=== PATIENT | female | born 1985 | race Caucasian/White ===

== ENCOUNTER 2019-11-29 10:36 | Day surgery (SDC) | payer MEDICAID ==
[~2019-11-29] VITALS: Ht 165.1 cm; Wt 62.9 kg
[2019-11-29] VITALS (9 sets, daily range): BP systolic 106–153; BP diastolic 83–99
[~2019-11-29 10:36] MED LIST: MAG400T PO; POTA8TAB46 PO; ZOF4T PO
[2019-11-29] MEDS ORDERED: normal saline 1000ml 1,000 ML IV ONE (10:55)
[2019-11-29] MEDS ORDERED: CARV3.122 PO (11:12)
[2019-11-29] MEDS ORDERED: LEVO150T8 PO (11:12)
[2019-11-29] MEDS ORDERED: LISI10TA4 PO (11:12)
[2019-11-29] MEDS ORDERED: CLONIDINE PO (11:12)
[2019-11-29] MEDS ORDERED: MAGN250T29 PO (11:12)
[2019-11-29 11:48] LABS: BASOPHILS # (AUTO) 0.1 X10'3 (0-0.2); BASOPHILS % (AUTO) 1.2 % (0-1); EOSINOPHILS # (AUTO) 0.2 X10'3 (0-0.9); EOSINOPHILS % (AUTO) 1.9 % (0-6); HEMATOCRIT 40.4 % (35.0-45.0); HEMOGLOBIN 13.5 g/dl (12.0-16.0); LYMPHOCYTES # (AUTO) 3.1 X10'3 (1.1-4.8); LYMPHOCYTES % (AUTO) 26.2 % (21-51); MEAN CORPUSCULAR HEMOGLOBIN 33.1 PG (27.0-31.0); MEAN CORPUSCULAR HGB CONC 33.5 g/dL (33.0-36.5); MEAN CORPUSCULAR VOLUME 98.8 FL (78-98); MEAN PLATELET VOLUME 7.8 FL (7.4-10.4); MONOCYTES # (AUTO) 0.8 X10'3 (0-0.9); MONOCYTES % (AUTO) 7.2 % (2-12); NEUTROPHILS # (AUTO) 7.5 X10'3 (1.8-7.7); NEUTROPHILS % (AUTO) 63.5 % (42-75); PLATELET COUNT 372 X10'3 (140-440); RED BLOOD COUNT 4.08 X10'6 (4.20-5.60); RED CELL DISTRIBUTION WIDTH 13.2 % (11.5-14.5); WHITE BLOOD COUNT 11.8 X10'3 (4.5-11.0)
[2019-11-29 11:55] LABS: ALBUMIN 3.4 G/DL (3.4-5.0); ANION GAP 8 (8-16); BLOOD UREA NITROGEN 20 MG/DL (7-18); BUN/CREATININE RATIO 21.7 (6.6-38.0); CALCIUM 8.8 MG/DL (8.5-10.1); CHLORIDE 106 MMOL/L (99-107); CREATININE 0.92 MG/DL (0.40-0.90); GLUCOSE 101 MG/DL (70-104); MAGNESIUM 1.9 MG/DL (1.5-2.4); POTASSIUM 3.5 MMOL/L (3.5-5.1); SODIUM 137 MMOL/L (135-145); TOTAL CARBON DIOXIDE 22.8 MMOL/L (24-32); eGFR 69 ML/MIN
[2019-11-29] MEDS ORDERED: midazolam 2 mg/2 ml injection ONE ×5 (12:58→14:16)
[2019-11-29] MEDS ORDERED: ceFAZolin 1000mg inj ONE (12:58)
[2019-11-29] MEDS ORDERED: LIDOcaine 1% W/epiNEPHrine 1:100,000 20ml vial ONE (12:58)
[2019-11-29] MEDS ORDERED: fentaNYL/PF 50MCG/1 ML 2ML syringe ONE ×3 (12:58→14:10)
[2019-11-29] MEDS ORDERED: HYDROcodone/acetaminophen 5mg/325mg tablet PO PRN (15:20)
[2019-11-29] MEDS ORDERED: HYDROcodone/acetaminophen 10/325mg tab PO PRN (15:20)
[2019-11-29] MEDS ORDERED: normal saline 1000ml 400 ML IV ONE (15:20)
== END 2019-11-29 17:00 | disposition home or self-care (01) ==
LOC: SSTAY O 10:36 → MED 3N 10:42 → SSTAY O 17:00
PROVIDERS: ATTEND Internal Medicine Cardiovascular Disease
DX: T82.191A Other mechanical complication of cardiac pulse generator (battery), initial encounter (principal); T82.190A Other mechanical complication of cardiac electrode, initial encounter; I49.01 Ventricular fibrillation; I42.0 Dilated cardiomyopathy; Z79.899 Other long term (current) drug therapy; E43 Unspecified severe protein-calorie malnutrition; F31.9 Bipolar disorder, unspecified; D64.9 Anemia, unspecified; E03.9 Hypothyroidism, unspecified; K21.9 Gastro-esophageal reflux disease without esophagitis; G40.909 Epilepsy, unspecified, not intractable, without status epilepticus; Z87.01 Personal history of pneumonia (recurrent); Z86.14 Personal history of Methicillin resistant Staphylococcus aureus infection; F12.90 Cannabis use, unspecified, uncomplicated; Z72.89 Other problems related to lifestyle; Z88.8 Allergy status to other drugs, medicaments and biological substances; Y83.8 Other surgical procedures as the cause of abnormal reaction of the patient, or of later complication, without mention of misadventure at the time of the procedure; Y92.89 Other specified places as the place of occurrence of the external cause
CPT/HCPCS: 33241; 33244; 33249; 36415; 71045; 80048; 83735; 85025; 85610; 93005; 93971; 99152; 99153; C1722; C1777; C1894; J0690; J2250; J3010; 33216; 33262; A4565; A4620

== ENCOUNTER 2022-07-22 04:39 | Emergency (ER) | payer MEDICAID ==
[~2022-07-22] VITALS: Ht 167.6 cm; Wt 67.3 kg
[~2022-07-22 04:39] MED LIST changes: +CARV3.122 PO; +CLONIDINE PO; +LEVO150T8 PO; +LISI10TA27 PO; -MAG400T PO; +MAGN250T29 PO; -POTA8TAB46 PO; -ZOF4T PO
[2022-07-22 05:45] LABS: BASOPHILS # (AUTO) 0.2 X10'3 (0-0.2); EOSINOPHILS # (AUTO) 0.2 X10'3 (0-0.9); HEMATOCRIT 40.2 % (35.0-45.0); HEMOGLOBIN 13.6 g/dl (12.0-16.0); LYMPHOCYTES # (AUTO) 2.8 X10'3 (1.1-4.8); LYMPHOCYTES % (AUTO) 17.4 % (21-51); MEAN CORPUSCULAR HEMOGLOBIN 36.2 PG (27.0-31.0); MEAN CORPUSCULAR HGB CONC 33.9 g/dL (33.0-36.5); MEAN CORPUSCULAR VOLUME 106.8 FL (78-98); MEAN PLATELET VOLUME 8.2 FL (7.4-10.4); MONOCYTES # (AUTO) 0.9 X10'3 (0-0.9); MONOCYTES % (AUTO) 5.8 % (2-12); NEUTROPHILS # (AUTO) 12.1 X10'3 (1.8-7.7); NEUTROPHILS % (AUTO) 74.8 % (42-75); PLATELET COUNT 361 X10'3 (140-440); RED BLOOD COUNT 3.77 X10'6 (4.20-5.60); RED CELL DISTRIBUTION WIDTH 15.1 % (11.5-14.5); WHITE BLOOD COUNT 16.2 X10'3 (4.5-11.0)
[2022-07-22 05:55] LABS: URINE HCG NEGATIVE (NEG)
[2022-07-22 06:02] LABS: URINE AMPHETAMINE SCREEN POSITIVE (Neg); URINE BARBITUATE SCREEN NEGATIVE (Neg); URINE BENZODIAZEPINES SCREEN POSITIVE (Neg); URINE CANNABINOID SCREEN POSITIVE (Neg); URINE COCAINE SCREEN NEGATIVE (Neg); URINE METHADONE SCREEN NEGATIVE (Neg); URINE OPIATE SCREEN NEGATIVE (Neg); URINE PHENCYCLIDINE SCREEN NEGATIVE (Neg)
[2022-07-22 06:03] LABS: ALANINE AMINOTRANSFERASE 21 U/L (12-78); ALBUMIN/GLOBULIN RATIO 0.8 (1.1-1.5); ALKALINE PHOSPHATASE 100 IU/L (46-116); ANION GAP 13 (8-16); BILIRUBIN,TOTAL 0.8 MG/DL (0.1-1.0); BLOOD UREA NITROGEN 10 MG/DL (7-18); BUN/CREATININE RATIO 10.1 (6.6-38.0); CALCIUM 10.1 MG/DL (8.5-10.1); CHLORIDE 101 MMOL/L (99-107); CREATININE 0.99 MG/DL (0.40-0.90); ETHANOL < 0.010 GM/DL (0.0-0.010); GLUCOSE 127 MG/DL (70-104); SODIUM 138 MMOL/L (135-145); TOTAL PROTEIN 8.8 G/DL (6.4-8.2); eGFR 63 ML/MIN
[2022-07-22 06:04] LABS: ASPARTATE AMINO TRANSFERASE 40 U/L (10-37); POTASSIUM 3.9 MMOL/L (3.5-5.1)
[2022-07-22] MEDS ORDERED: folic acid 1mg tablet PO ONE (08:15)
[2022-07-22] MEDS ORDERED: ringers solution, lacted 1,000 ML IV ONE (08:15)
[2022-07-22] MEDS ORDERED: thiamine 100mg/ml 2ml inj. IV ONE (08:15)
[2022-07-22 08:29] LABS: CLARITY,URINE CLOUDY (Clear); GLUCOSE, URINE NEGATIVE (Neg); KETONES,URINE TRACE mg/dl (Neg); LEUKOCYTE ESTERASE ,URINE NEGATIVE (Neg); NITRITES, URINE NEGATIVE (Neg); OCCULT BLOOD,URINE NEGATIVE (Neg); PH,URINE 5.5 (4.8-8.0); PROTEIN,URINE 30 mg/dl (Neg); UROBILINOGEN,URINE 0.2 E.U/dL (0.2-1.0)
[2022-07-22 08:30] LABS: COLOR,URINE DARK YELLOW (Yellow); UA COLLECTION TYPE CLN CATCH MIDSTREAM
[2022-07-22 08:39] LABS: WBC,URINE 0-4 /HPF (0-4)
[2022-07-22 08:40] LABS: BACTERIA,URINE 1+ /HPF (Neg); CAL OXALATE CRYSTALS 4+ /HPF (NEGATIVE); RBC,URINE NONE SEEN /HPF (0-2); SQUAMOUS EPITHELIAL CELL,UR MANY /LPF (FEW)
--- NOTE | 2022-07-22 12:43 | NUR ---
Met with patient in regards to substance use and to see if patient wanted resources for treatment options. Patient is interested in both in and out patient rehabs. I gave patient [facility] number to call and get process started and my card to call me with any questions.
[2022-07-22 14:45] VITALS: BP 124/84
== END 2022-07-22 14:49 | disposition home or self-care (01) ==
LOC: ER 04:40
DX: Z00.8 Encounter for other general examination (principal); Z20.822 Contact with and (suspected) exposure to COVID-19; F31.9 Bipolar disorder, unspecified; I10 Essential (primary) hypertension; K21.9 Gastro-esophageal reflux disease without esophagitis; G89.29 Other chronic pain; F41.9 Anxiety disorder, unspecified; Z72.89 Other problems related to lifestyle; Z88.2 Allergy status to sulfonamides; Z79.899 Other long term (current) drug therapy
CPT/HCPCS: 36415; 80053; 80305; 80320; 81001; 81025; 85025; 87811; 96361; 96374; 99285; J3411; J7120; 99283

== ENCOUNTER 2023-12-06 02:30 | Emergency (ER) | payer MEDICAID, SELFPAY ==
[~2023-12-06] VITALS: Ht 165.1 cm; Wt 61.4 kg
[2023-12-06 02:43] VITALS: TEMP 98.4
[2023-12-06 04:23] VITALS: BP 100/66; PULSE 81; RESP 18; O2SAT 99
== END 2023-12-06 04:40 | disposition home or self-care (01) ==
LOC: ER 02:30
DX: T46.4X1A Poisoning by angiotensin-converting-enzyme inhibitors, accidental (unintentional), initial encounter (principal); I10 Essential (primary) hypertension; K21.9 Gastro-esophageal reflux disease without esophagitis; F41.9 Anxiety disorder, unspecified; Z88.2 Allergy status to sulfonamides; Z91.030 Bee allergy status; Z79.899 Other long term (current) drug therapy; Z79.2 Long term (current) use of antibiotics; Y92.89 Other specified places as the place of occurrence of the external cause
CPT/HCPCS: 99283

== ENCOUNTER 2024-05-09 07:05 | Emergency (ER) | payer MEDICAID ==
[~2024-05-09] VITALS: Ht 165.1 cm; Wt 76.4 kg
[2024-05-09 07:08] VITALS: TEMP 97.8
[2024-05-09] MEDS: diphenhydrAMINE 50 mg/ml inj IV ONE (07:55)
[2024-05-09] MEDS: ketorolac trometh 15mg/ml vial 15 MG/ML ML IV ONE (07:55)
[2024-05-09] MEDS: normal saline 1000ML IV soln IVB ONE (07:55)
[2024-05-09] MEDS: metoclopramide 5 mg/ml inj IV ONE (07:55)
[2024-05-09] MEDS: ketorolac trometh 15mg/ml vial 15 MG/ML ML IM ONE (09:27)
[2024-05-09] MEDS: traMADol 50MG tablet PO ONE (09:27)
[2024-05-09] MEDS: acetaminophen 1,000mg/100ml IV 100 ML IV STA (09:42)
[2024-05-09 10:45] VITALS: BP 123/74; PULSE 77; RESP 14; O2SAT 95
== END 2024-05-09 10:48 | disposition home or self-care (01) ==
LOC: ER 07:05
DX: R07.89 Other chest pain (principal); I10 Essential (primary) hypertension; K21.9 Gastro-esophageal reflux disease without esophagitis; F41.9 Anxiety disorder, unspecified; F12.90 Cannabis use, unspecified, uncomplicated; F15.90 Other stimulant use, unspecified, uncomplicated; Z88.2 Allergy status to sulfonamides; Z79.899 Other long term (current) drug therapy
CPT/HCPCS: 71045; 93005; 96372; 99283; J1885; J7030

== ENCOUNTER 2024-09-20 19:41 | Emergency (ER) | payer MEDICAID ==
[~2024-09-20] VITALS: Ht 167.6 cm; Wt 75.4 kg
[2024-09-20 19:45] VITALS: BP 114/74; PULSE 71; RESP 16; TEMP 98.3; O2SAT 100
[2024-09-20 20:57] LABS: BASOPHILS # (AUTO) 0.1 X10'3 (0-0.2); BASOPHILS % (AUTO) 0.7 % (0-1); EOSINOPHILS # (AUTO) 0.1 X10'3 (0-0.9); EOSINOPHILS % (AUTO) 0.5 % (0-6); HEMATOCRIT 38.6 % (35.0-45.0); HEMOGLOBIN 12.9 g/dl (12.0-16.0); LYMPHOCYTES # (AUTO) 2.6 X10'3 (1.1-4.8); LYMPHOCYTES % (AUTO) 20.9 % (21-51); MEAN CORPUSCULAR HEMOGLOBIN 30.3 PG (27.0-31.0); MEAN CORPUSCULAR HGB CONC 33.5 g/dL (33.0-36.5); MEAN CORPUSCULAR VOLUME 90.5 FL (78-98); MEAN PLATELET VOLUME 7.4 FL (7.4-10.4); MONOCYTES # (AUTO) 0.5 X10'3 (0-0.9); MONOCYTES % (AUTO) 3.6 % (2-12); NEUTROPHILS # (AUTO) 9.4 X10'3 (1.8-7.7); NEUTROPHILS % (AUTO) 74.3 % (42-75); PLATELET COUNT 449 X10'3 (140-440); RED BLOOD COUNT 4.27 X10'6 (4.20-5.60); RED CELL DISTRIBUTION WIDTH 13.4 % (11.5-14.5); WHITE BLOOD COUNT 12.6 X10'3 (4.5-11.0)
[2024-09-20 21:09] LABS: ALANINE AMINOTRANSFERASE 16 U/L (12-78); ALBUMIN 3.5 G/DL (3.4-5.0); ALBUMIN/GLOBULIN RATIO 0.8 (1.1-1.5); ALKALINE PHOSPHATASE 99 IU/L (46-116); ANION GAP 10 (8-16); ASPARTATE AMINO TRANSFERASE 12 U/L (10-37); BILIRUBIN,TOTAL 0.5 MG/DL (0.1-1.0); BLOOD UREA NITROGEN 7 MG/DL (7-18); BUN/CREATININE RATIO 10.6 (10.0-20.0); CALCIUM 8.9 MG/DL (8.5-10.1); CHLORIDE 103 MMOL/L (99-107); CREATININE 0.66 MG/DL (0.40-0.90); GLUCOSE 117 MG/DL (70-104); POTASSIUM 3.3 MMOL/L (3.5-5.1); SODIUM 137 MMOL/L (135-145); TOTAL CARBON DIOXIDE 23.8 MMOL/L (24-32); TOTAL PROTEIN 8.1 G/DL (6.4-8.2); eCRCL 106 ML/MIN; eGFR > 90 ML/MIN
== END 2024-09-21 00:29 | disposition left against medical advice (07) ==
LOC: ER 19:42
DX: R10.9 Unspecified abdominal pain (principal); Z88.2 Allergy status to sulfonamides; Z91.030 Bee allergy status; Z53.21 Procedure and treatment not carried out due to patient leaving prior to being seen by health care provider
CPT/HCPCS: 36415; 80053; 85025; 93005

== ENCOUNTER 2024-11-30 00:16 | Emergency (ER) | payer MEDICAID ==
[~2024-11-30] VITALS: Ht 172.7 cm; Wt 68.0 kg
[2024-11-30 00:58] LABS: BASOPHILS # (AUTO) 0.1 X10'3 (0-0.2); BASOPHILS % (AUTO) 0.7 % (0-1); EOSINOPHILS # (AUTO) 0.4 X10'3 (0-0.9); HEMATOCRIT 36.5 % (35.0-45.0); HEMOGLOBIN 12.6 g/dl (12.0-16.0); LYMPHOCYTES # (AUTO) 4.5 X10'3 (1.1-4.8); LYMPHOCYTES % (AUTO) 41.7 % (21-51); MEAN CORPUSCULAR HGB CONC 34.5 g/dL (33.0-36.5); MEAN CORPUSCULAR VOLUME 89.8 FL (78-98); MEAN PLATELET VOLUME 7.2 FL (7.4-10.4); MONOCYTES # (AUTO) 0.4 X10'3 (0-0.9); MONOCYTES % (AUTO) 3.8 % (2-12); NEUTROPHILS # (AUTO) 5.3 X10'3 (1.8-7.7); NEUTROPHILS % (AUTO) 49.8 % (42-75); PLATELET COUNT 329 X10'3 (140-440); RED BLOOD COUNT 4.07 X10'6 (4.20-5.60); RED CELL DISTRIBUTION WIDTH 12.7 % (11.5-14.5); WHITE BLOOD COUNT 10.7 X10'3 (4.5-11.0)
[2024-11-30 00:59] LABS: ALBUMIN 3.3 G/DL (3.4-5.0); ANION GAP 10 (8-16); BLOOD UREA NITROGEN 9 MG/DL (7-18); BUN/CREATININE RATIO 11.7 (10.0-20.0); CALCIUM 8.8 MG/DL (8.5-10.1); CHLORIDE 105 MMOL/L (99-107); CREATININE 0.77 MG/DL (0.40-0.90); GLUCOSE 95 MG/DL (70-104); SODIUM 139 MMOL/L (135-145); TOTAL CARBON DIOXIDE 23.7 MMOL/L (24-32); eCRCL 98 ML/MIN; eGFR 83 ML/MIN
[2024-11-30] MEDS: normal saline 1000ml 1,000 ML IV ONE (01:04)
[2024-11-30 01:07] LABS: POTASSIUM 3.7 MMOL/L (3.5-5.1)
[2024-11-30 01:33] LABS: BILIRUBIN,URINE NEGATIVE (Neg); CLARITY,URINE CLEAR (Clear); COLOR,URINE YELLOW (Yellow); GLUCOSE, URINE NEGATIVE (Neg); KETONES,URINE NEGATIVE (Neg); LEUKOCYTE ESTERASE ,URINE NEGATIVE (Neg); NITRITES, URINE NEGATIVE (Neg); OCCULT BLOOD,URINE NEGATIVE (Neg); PROTEIN,URINE NEGATIVE (Neg); UROBILINOGEN,URINE 0.2 E.U/dL (0.2-1.0)
[2024-11-30 01:34] LABS: UA COLLECTION TYPE CLN CATCH MIDSTREAM
[2024-11-30 01:38] LABS: URINE AMPHETAMINE SCREEN POSITIVE (Neg); URINE BARBITUATE SCREEN NEGATIVE (Neg); URINE BENZODIAZEPINES SCREEN NEGATIVE (Neg); URINE CANNABINOID SCREEN POSITIVE (Neg); URINE COCAINE SCREEN NEGATIVE (Neg); URINE METHADONE SCREEN NEGATIVE (Neg); URINE OPIATE SCREEN NEGATIVE (Neg); URINE PHENCYCLIDINE SCREEN NEGATIVE (Neg)
[2024-11-30 03:02] VITALS: BP 101/73; PULSE 66; RESP 16; TEMP 98.4; O2SAT 100
== END 2024-11-30 03:27 | disposition home or self-care (01) ==
LOC: ER 00:17
DX: F10.129 Alcohol abuse with intoxication, unspecified (principal); I10 Essential (primary) hypertension; F41.9 Anxiety disorder, unspecified; F15.90 Other stimulant use, unspecified, uncomplicated; F11.90 Opioid use, unspecified, uncomplicated; F12.90 Cannabis use, unspecified, uncomplicated; Z88.2 Allergy status to sulfonamides; Y90.9 Presence of alcohol in blood, level not specified
CPT/HCPCS: 36415; 80048; 80305; 81003; 85025; 96360; 99283; J7030

== ENCOUNTER 2024-12-21 08:02 | Emergency (ER) | payer MEDICAID ==
[~2024-12-21] VITALS: Ht 167.6 cm; Wt 70.0 kg
[2024-12-21 08:06] VITALS: TEMP 97.8
--- NOTE | 2024-12-21 08:13 | ELECTROCARDIOGRAPH REPORT ---
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 Artur Odom Measurements Intervals [place] Rate: 78 P: 47 VT: 146 QRS: 12 QRSD: 96 T: 43 QT: 403 QTc: 460 Interpretive Statements Sinus rhythm Low voltage, precordial leads Baseline wander in lead(s) I,aVR,aVL,V2 Electronically Signed On 12-22-2024 15:45:[address] Artur Odom Please click the below link to view image of tracing.
--- NOTE | 2024-12-21 08:15 | Physician Documentation ---
History of Present Illness ~ Stated Complaint: CP Time Seen by MD: 08:07 Primary Medical Doctor: Michelle ALLEN This is a 39-year-old female who presents for evaluation of left-sided chest wall pain after she took a tumble while high clean. Worse with deep inspiration and palpation. No particular palliating factors. Did not attempt to treat it. This has not happened in the past. Denies abuse. Denies cardiac disease. She uses methamphetamines. Tetanus within 5 Years?: No Allergies: Coded Allergies: Sulfa (Sulfonamide Antibiotics) (Verified Adverse Reaction, Mild, itchy around throat and ears, 09/20/24) Uncoded Allergies: BEES (Allergy, Intermediate, 09/24/09) MOSQUITOS (Allergy, Intermediate, 09/24/09) Active Prescriptions See Medication Reconciliation Form. Medication Reconciliation Scheduled Carvedilol (Carvedilol), 1 TAB PO BID, (Reported) Levothyroxine Sodium (Levothyroxine Sodium), 1 TAB PO DAILY, (Reported) Lisinopril (Lisinopril), 10 MG PO BID, (Reported) Magnesium Oxide (Magnesium), 1 TAB PO BID, (Reported) [Clonidine], 2 TAB PO PRN, (Reported) Past Medical History Past Medical History: Arrhythmia, Hypertension, GERD, Thyroid (unspecified), Chronic Back Pain, Anxiety Past Surgical History: no surgical history Alcohol Use: Alcoholic Drug Use: marijuana, methamphetamine, heroin Lives with: Family Lives In: Home Occupation: disabled Review of Systems ROS 10 point review of systems was performed and unless noted above in HPI is negative for acute process/complaint. Physical Exam Physical Exam GENERAL: Awake, alert, oriented, GCS 15, no apparent distress, non-toxic appearing, answers questions, follows commands appropriately. HEENT: Atraumatic, normocephalic, pupils equal, extraocular muscles intact, sclerae anicteric, mucus membranes moist, oropharynx is clear, no stridor. NECK: supple, full active range of motion, trachea midline, no thyromegaly, no lymphadenopathy, no JVD. CARDIOVASCULAR: regular rate/rhythm, no murmurs/gallops/rubs, Pulses are 2+ in all extremities and symmetric. Capillary refill less than 2 seconds. PULMONARY: Nonlabored, good air movement ,no respiratory distress, speaking in full sentences, clear to auscultation bilaterally, no wheezing, no ronchi, no rales, no accessory muscle use. GASTROINTESTINAL: Soft, non-tender, non-distended, normal active bowel sounds, no organomegaly, no pulsatile masses, no CVA tenderness. NEUROLOGIC: Lucid with normal mental status. Normal facial symmetry. Moves all extremities symmetrically and with purpose. No truncal ataxia. Speech is fluid without evidence of dysarthria or aphasia, no focal deficits appreciated. MUSCULOSKELETAL: There is full range of motion of all extremities. There is no joint pain or joint swelling or joint erythema. There is no muscle pain or tenderness or swelling. EXTREMITIES: warm, well-perfused, no cyanosis, no clubbing, no edema, no acute deformities. Skin: warm, dry, no rashes or lesions, no jaundice, no petechiae orpurpura. No ecchymosis. PSYCHIATRIC: Normal affect, normal insight, normal concentration. Focused exam: Tenderness to palpation of the left-sided chest wall reproducing chief complaint, no obvious bruising, no flail segments, no crepitus Progress Results/Orders Results/Orders Orders - ZULMA WINSTON DO Ct Chest (12/21/24 09:55) Hs Troponin I W Calculations (12/21/24 10:08) Hs Troponin I W Calculations (12/21/24 11:08) Completed Orders - ZULMA WINSTON DO Electrocardiogram (12/21/24 08:08) Cbc/Diff (12/21/24 08:08) PBNP (12/21/24 08:08) MG (12/21/24 08:08) Ct Chest (12/21/24 09:55) CMP (12/21/24 08:08) Hs Troponin I W Calculations (12/21/24 08:08) Hcg Serum Ql (12/21/24 08:08) Urinalysis (12/21/24 08:14) Drug Screen, Urine (12/21/24 08:14) Hcg, Ur Ql (12/21/24 08:14) Vital Signs 12/21/24 12/21/24 12/21/24 12/21/24 08:06 08:24 09:52 09:52 Temp 97.8 Pulse 81 79 74 Resp 15 15 15 14 B/P (MAP) 131/92 135/91 (106) 132/96 (108) Pulse Ox 98 98 100 Laboratory Tests Test 12/21/24 08:17 12/21/24 08:58 Urine Specimen Description Urinal Urine Color Yellow Urine Clarity Clear Urine pH 6.0 Urine Specific [place] 1.020 Urine Protein Negative Urine Glucose (UA) Negative Urine Ketones Negative Urine Occult Blood Negative Urine Nitrite Negative Urine Bilirubin Negative Urine Urobilinogen 0.2 Urine Leukocyte Esterase Negative Volume Urine Centrifuged 10 ml Urine HCG, Qualitative Negative Urine Comment Urine Opiates Screen Negative Urine Methadone Screen Negative Urine Fentanyl Screen Negative Urine Barbiturates Screen Negative Urine Phencyclidine Screen Negative Urine Amphetamines Screen Positive Urine Benzodiazepines Screen Negative Urine Cocaine Screen Negative Urine Cannabinoids Screen Positive Drug Screen Comment White Blood Count 6.0 Red Blood Count 4.02 L Hemoglobin 12.5 Hematocrit 36.9 Mean Corpuscular Volume 91.8 Mean Corpuscular Hemoglobin 31.2 H Mean Corpuscular Hemoglobin Concent 34.0 Red Cell Distribution Width 13.7 Platelet Count 360 Mean Platelet Volume 6.8 L Neutrophils (%) (Auto) 36.9 L Lymphocytes (%) (Auto) 51.0 Monocytes (%) (Auto) 6.2 Eosinophils (%) (Auto) 4.5 Basophils (%) (Auto) 1.4 H Neutrophils # (Auto) 2.2 Lymphocytes # (Auto) 3.0 Monocytes # (Auto) 0.4 Eosinophils # (Auto) 0.3 Basophils # (Auto) 0.1 CBC Comment Sodium Level 138 Potassium Level 3.6 Chloride Level 103 Carbon Dioxide Level 26.6 Anion Gap 8 Blood Urea Nitrogen 12 Creatinine 0.90 Estimated GFR/1.73 m2 69 BUN/Creatinine Ratio 13.3 Glucose Level 106 H Calcium Level 8.3 L Magnesium Level 1.9 Total Bilirubin 0.5 Aspartate Amino Transf (AST/SGOT) 19 Alanine Aminotransferase (ALT/SGPT) 15 Alkaline Phosphatase 103 Troponin I High Sensitivity 5 Pro-B-Type Natriuretic Peptide 37 Total Protein 7.3 Albumin 3.4 Globulin 3.9 Albumin/Globulin Ratio 0.9 L Human Chorionic Gonadotropin, Qual Negative Chemistry Comments EKG/XRAY/CT/US/VASC/MRI EKG : Additional Comment EKG was obtained per protocol and interpreted by myself showing sinus rhythm of 78, normal MS interval, narrow QRS, no QT prolongation, normal axis, no STEMI. Low voltage noted. Medical Decision Making Findings Facility Status: ED Holds, RME process The plan was discussed with the patient, who demonstrates clear understanding of the plan and is in agreement with the plan unless otherwise noted in the chart. All questions have been answered, all concerns were addressed unless otherwise documented. I was available throughout their ED stay for frequent reassessment and questions. Differential Diagnoses (considered and possible or likely): [Differential diagnosis considered includes chest wall pain, pleurisy, pneumonia, pulmonary embolus, GERD, esophagitis, gastritis, anxiety, stress reaction, costochondritis , acute coronary syndrome, aortic dissection, pericarditis, myocarditis, or pneumothorax.] ??Differential Diagnoses (considered and unlikely, not requiring evaluation currently): [Aortic/great vessels dissection was considered but it is unlikely based on absence of ripping, tearing, migratory chest pain, absence of syncope or focal neurologic deficits, physical examination indicating equal and symmetric pulses.] MDM Data Please see [facility] for the following: Independent Historians and external Records Review. Historian: [Patient] Independent Historians: ?[EMS, record review] Medication Management: [Reviewed medication list] Social History and determinants: [Reviewed] Please see the body of the note for the following: Any independent interpretations of ECG, imaging studies. All vitals signs/haemodynamics, ordered tests were independently reviewed and interpreted by myself. Nursing triage complaint and vitals reviewed, additional nursing notes were reviewed as available and I agree unless otherwise noted or documented in con tradiction in the chart Vital Signs: Independently reviewed Labs: Independently interpreted Imaging: Independently interpreted Old Medical Records: Independently reviewed, see HPI for relevant summary and information Pulse Oximetry: [99%] interpreted as [normal on room air] by me [Shuttle Inspector: [Regular Rate, Regular rhythm, no ectopy, NSR] reviewed and interpreted by me] Additionally notably showing: [Hemodynamically stable. Unremarkable workup with negative troponin, negative CT, negative blood work. Incidentally UA is positive for methamphetamines as expected.] Tests considered but not ordered include: [Not applicable] Social Determinants of Health Impact: Patient was evaluated in [facility], or [facility] [place] with limited access to healthcare due to below par ratio of patient to medical providers. [] Comorbid Conditions Impacting Present Evaluation and Care/Treatment: [Methamphetamine abuse] Management Discussions with other Healthcare Providers: [None] Treatment and Disposition Medication Management (Given or considered): [Pain management]. See EMR for details Consideration for Hospitalization/Escalation/Deescalation of Care: Admission for observation has been considered, [however the patient is able to tolerate p.o., their symptoms are controlled, they are able to rely on oral medications, and their chief complaint/diagnosis can be managed on outpatient basis.] ?ED Course:?[No clinical deterioration] ?Shared decision making:?[Patient is hemodynamically stable for discharge home with follow with their primary care provider. [ ] Specific and cautious return precautions provided and discussed with full understanding. Any incidental findings were also discussed and follow up recommendations given. [] All questions answered. Patient/family were able to verbalize back return precautions. Patient/family agree to plan. Copies of imaging and laboratory studies were provided.] Code status:?FULL Please see the full Electronic Medical Record for full details of nursing docum entation, medications list, other records of complete past medical history and conditions, vital signs, laboratory studies, and any radiologic study interpretations by radiologists. Portions of this note were completed using [employer] dictation software and as a result there may exist minor errors in spelling. I have reviewed elements of past family and social history and agree as included in note. Departure Disposition: HOME / SELF CARE / HOMELESS Impression: Primary Impression: Tenderness of chest wall Condition: Improved Discharge Instructions: Chest Wall Pain Referrals: NO PRIMARY CARE PROVIDER (PCP) Education Educated: Patient Educated regarding: diagnosis, treatment, prognosis, need for follow up Signature Scribe Signature: No scribe Attestation: This note accurately reflects clinical decisions, work performed by myself, DO TISH Sterling NICHOLAS M DO December 21, 2024 08:15
[2024-12-21 08:48] LABS: BILIRUBIN,URINE NEGATIVE (Neg); CLARITY,URINE CLEAR (Clear); COLOR,URINE YELLOW (Yellow); GLUCOSE, URINE NEGATIVE (Neg); KETONES,URINE NEGATIVE (Neg); LEUKOCYTE ESTERASE ,URINE NEGATIVE (Neg); OCCULT BLOOD,URINE NEGATIVE (Neg); PROTEIN,URINE NEGATIVE (Neg); UROBILINOGEN,URINE 0.2 E.U/dL (0.2-1.0)
[2024-12-21 08:54] LABS: URINE HCG NEGATIVE (NEG)
[2024-12-21 08:58] LABS: URINE AMPHETAMINE SCREEN POSITIVE (Neg); URINE BARBITUATE SCREEN NEGATIVE (Neg); URINE BENZODIAZEPINES SCREEN NEGATIVE (Neg); URINE CANNABINOID SCREEN POSITIVE (Neg); URINE COCAINE SCREEN NEGATIVE (Neg); URINE METHADONE SCREEN NEGATIVE (Neg); URINE OPIATE SCREEN NEGATIVE (Neg); URINE PHENCYCLIDINE SCREEN NEGATIVE (Neg)
[2024-12-21 08:59] LABS: UA COLLECTION TYPE URINAL
[2024-12-21 09:01] LABS: NITRITES, URINE NEGATIVE (Neg)
[2024-12-21 09:10] LABS: BASOPHILS # (AUTO) 0.1 X10'3 (0-0.2); BASOPHILS % (AUTO) 1.4 % (0-1); EOSINOPHILS # (AUTO) 0.3 X10'3 (0-0.9); EOSINOPHILS % (AUTO) 4.5 % (0-6); HEMATOCRIT 36.9 % (35.0-45.0); HEMOGLOBIN 12.5 g/dl (12.0-16.0); MEAN CORPUSCULAR HEMOGLOBIN 31.2 PG (27.0-31.0); MEAN CORPUSCULAR VOLUME 91.8 FL (78-98); MEAN PLATELET VOLUME 6.8 FL (7.4-10.4); MONOCYTES # (AUTO) 0.4 X10'3 (0-0.9); MONOCYTES % (AUTO) 6.2 % (2-12); NEUTROPHILS # (AUTO) 2.2 X10'3 (1.8-7.7); NEUTROPHILS % (AUTO) 36.9 % (42-75); PLATELET COUNT 360 X10'3 (140-440); RED BLOOD COUNT 4.02 X10'6 (4.20-5.60); RED CELL DISTRIBUTION WIDTH 13.7 % (11.5-14.5)
[2024-12-21 09:25] LABS: ALANINE AMINOTRANSFERASE 15 U/L (12-78); ALBUMIN 3.4 G/DL (3.4-5.0); ALBUMIN/GLOBULIN RATIO 0.9 (1.1-1.5); ALKALINE PHOSPHATASE 103 IU/L (46-116); ANION GAP 8 (8-16); ASPARTATE AMINO TRANSFERASE 19 U/L (10-37); BILIRUBIN,TOTAL 0.5 MG/DL (0.1-1.0); BLOOD UREA NITROGEN 12 MG/DL (7-18); BUN/CREATININE RATIO 13.3 (10.0-20.0); CALCIUM 8.3 MG/DL (8.5-10.1); CHLORIDE 103 MMOL/L (99-107); GLUCOSE 106 MG/DL (70-104); POTASSIUM 3.6 MMOL/L (3.5-5.1); SODIUM 138 MMOL/L (135-145); TOTAL CARBON DIOXIDE 26.6 MMOL/L (24-32); TOTAL PROTEIN 7.3 G/DL (6.4-8.2); eCRCL 78 ML/MIN; eGFR 69 ML/MIN
[2024-12-21 09:33] LABS: MAGNESIUM 1.9 MG/DL (1.5-2.4); PRO BRAIN NATRIURETIC PEPTIDE 37 PG/ML (0-125)
[2024-12-21 09:44] LABS: HCG SERUM QL NEGATIVE
--- NOTE | 2024-12-21 10:25 | RADIOLOGY REPORT ---
Procedure: CT CT CHEST Reason for study/Clinical History: Fall, left-sided rib pain Comparison Study: NoneNone TECHNIQUE: Multidetector CT of the chest was performed from the lung apices to the upper abdomen with out the use of intravenous contract. Axial, coronal and sagittal multiplanar reformats were performed . Radiation Dose Information: CT Dose: CTDI volume is 14.9 mGy. Dose-length product is 471.9 mGy*cm The dose indicators for CT are the volume Computed Tomography (CT) Dose Index (CTDIvol) and the Dose Length Product (DLP), and are measured in units of mGy and mGy-cm, respectively. These indicators are not patient dose, but values generated from the CT scanner acquisition factors. The report includes radiation exposure data for exposures received during this examination. FINDINGS: Lower neck: Unremarkable. Lungs: No focal consolidation. No suspicious pulmonary nodule. Heart/Vascular Structures: Normal heart size. No pericardial effusion. Lymph Nodes: No adenopathy Pleura: No pleural effusion or significant pneumothorax. Musculoskeletal: No acute osseous abnormality. Chronic healed left posterolateral 9th rib fracture. C hronic healed sternal fracture. Soft tissues: Cardiac device overlies the left lateral chest wall. Upper abdomen: Limited portions of the upper abdomen are unremarkable. IMPRESSION: No acute intrathoracic abnormality. Radiation optimization: All CT scans at this facility use at least one of these dose optimization yuri hniques: automated exposure control mA and/or kV adjustment per patient size (includes targeted exam s where dose is matched to clinical indication) or iterative reconstruction.
[2024-12-21 11:02] VITALS: BP 118/93; PULSE 60; RESP 12; O2SAT 96
== END 2024-12-21 11:06 | disposition home or self-care (01) ==
LOC: ER 08:03
DX: R07.89 Other chest pain (principal); I10 Essential (primary) hypertension; F12.90 Cannabis use, unspecified, uncomplicated; F15.90 Other stimulant use, unspecified, uncomplicated; F11.90 Opioid use, unspecified, uncomplicated; F10.90 Alcohol use, unspecified, uncomplicated; G89.29 Other chronic pain; M54.9 Dorsalgia, unspecified; K21.9 Gastro-esophageal reflux disease without esophagitis; F41.9 Anxiety disorder, unspecified; I16.1 Hypertensive emergency; Z79.899 Other long term (current) drug therapy; Z88.2 Allergy status to sulfonamides; Y90.9 Presence of alcohol in blood, level not specified
CPT/HCPCS: 36415; 71250; 80053; 80305; 81003; 81025; 83735; 83880; 84484; 84703; 85025; 93005; 99284

== ENCOUNTER 2024-12-21 11:49 | Emergency (ER) | payer MEDICAID | END 2024-12-21 12:45 | disposition left against medical advice (07) | LOC: ER 11:50 | DX: Z48.00 Encounter for change or removal of nonsurgical wound dressing (principal); Z53.21 Procedure and treatment not carried out due to patient leaving prior to being seen by health care provider; Z88.2 Allergy status to sulfonamides; Z91.030 Bee allergy status ==

== ENCOUNTER 2024-12-23 01:33 | Emergency (ER) | payer MEDICAID ==
[~2024-12-23] VITALS: Ht 165.1 cm; Wt 70.5 kg
--- NOTE | 2024-12-23 02:00 | Physician Documentation ---
History of Present Illness ~ General Chief Complaint: Multiple Medical Complaints Stated Complaint: ETOH Time Seen by MD: 01:38 Primary Medical Doctor: Michelle History of Present Illness Initial Comments This is a 39-year-old female who comes in for evaluation of palpitations. She was seen by me yesterday in discharge. Today she states that she has been experiencing palpitations in my back. Not accompanied by chest pain or difficulty breathing. Chronic abdominal pain reported with the patient. She treated her palpitations by taking couple of shots of vodka. She drinks. Smokes. Medication Reconciliation Allergies: Coded Allergies: Sulfa (Sulfonamide Antibiotics) (Verified Adverse Reaction, Mild, itchy around throat and ears, 12/23/24) Uncoded Allergies: BEES (Allergy, Intermediate, 09/24/09) MOSQUITOS (Allergy, Intermediate, 09/24/09) Scheduled Carvedilol (Carvedilol), 1 TAB PO BID, (Reported) Levothyroxine Sodium (Levothyroxine Sodium), 1 TAB PO DAILY, (Reported) Lisinopril (Lisinopril), 10 MG PO BID, (Reported) Magnesium Oxide (Magnesium), 1 TAB PO BID, (Reported) [Clonidine], 2 TAB PO PRN, (Reported) Past Medical History Past Medical History: Arrhythmia, Hypertension, GERD, Thyroid (unspecified), Chronic Back Pain, Anxiety Past Surgical History: no surgical history Alcohol Use: Alcoholic Drug Use: marijuana, methamphetamine, heroin Lives with: Family Lives In: Home Occupation: disabled Review of Systems ROS 10 point review of systems was performed and unless noted above in HPI is negative for acute process/complaint. Physical Exam Physical Exam Vital Signs: Temperature: 98.1, Source: Oral, Heart Rate: 91, Respiratory Rate: 16, BP: 129/93, Pulse Oximetry: 100, Weight: 70.450 Oxygen Flow Rate: 0 Physical Exam GENERAL: Awake, alert, oriented, GCS 15, no apparent distress, non-toxic appearing, answers questions, follows commands appropriately. HEENT: Atraumatic, normocephalic, pupils equal, extraocular muscles intact, sclerae anicteric, mucus membranes moist, oropharynx is clear, no stridor. NECK: supple, full active range of motion, trachea midline, no thyromegaly, no l ymphadenopathy, no JVD. CARDIOVASCULAR: regular rate/rhythm, no murmurs/gallops/rubs, Pulses are 2+ in all extremities and symmetric. Capillary refill less than 2 seconds. PULMONARY: Nonlabored, good air movement ,no respiratory distress, speaking in full sentences, clear to auscultation bilaterally, no wheezing, no ronchi, no rales, no accessory muscle use. GASTROINTESTINAL: Soft, non-tender, non-distended, normal active bowel sounds, no organomegaly, no pulsatile masses, no CVA tenderness. NEUROLOGIC: Lucid with normal mental status. Normal facial symmetry. Moves all extremities symmetrically and with purpose. No truncal ataxia. Speech is fluid without evidence of dysarthria or aphasia, no focal deficits appreciated. MUSCULOSKELETAL: There is full range of motion of all extremities. There is no joint pain or joint swelling or joint erythema. There is no muscle pain or tenderness or swelling. EXTREMITIES: warm, well-perfused, no cyanosis, no clubbing, no edema, no acute deformities. Skin: warm, dry, no rashes or lesions, no jaundice, no petechiae orpurpura. No ecchymosis. PSYCHIATRIC: Normal affect, normal insight, normal concentration. Focused exam: [] Progress Results/Orders Results/Orders Orders - ZULMA WINSTON DO Electrocardiogram (12/23/24 01:54) Chest,Single View (12/23/24 02:15) Completed Orders - ZULMA WINSTON DO Ethanol (12/23/24 01:54) Cbc/Diff (12/23/24 01:54) Chest,Single View (12/23/24 02:15) Hs Troponin I W Calculations (12/23/24 01:54) CMP (12/23/24 01:54) Vital Signs 12/23/24 12/23/24 01:41 02:01 Temp 98.1 Pulse 91 90 Resp 16 15 B/P (MAP) 129/93 126/90 (102) Pulse Ox 100 100 O2 Flow Rate 0 0 Laboratory Tests Test 12/23/24 02:09 White Blood Count 7.6 Red Blood Count 4.30 Hemoglobin 13.4 Hematocrit 39.1 Mean Corpuscular Volume 91.0 Mean Corpuscular Hemoglobin 31.2 H Mean Corpuscular Hemoglobin Concent 34.3 Red Cell Distribution Width 13.5 Platelet Count 369 Mean Platelet Volume 6.8 L Neutrophils (%) (Auto) 47.0 Lymphocytes (%) (Auto) 43.7 Monocytes (%) (Auto) 4.4 Eosinophils (%) (Auto) 3.7 Basophils (%) (Auto) 1.2 H Neutrophils # (Auto) 3.6 Lymphocytes # (Auto) 3.3 Monocytes # (Auto) 0.3 Eosinophils # (Auto) 0.3 Basophils # (Auto) 0.1 CBC Comment Sodium Level 139 Potassium Level 3.8 Chloride Level 105 Carbon Dioxide Level 22.6 L Anion Gap 11 Blood Urea Nitrogen 11 Creatinine 0.96 H Estimated GFR/1.73 m2 64 BUN/Creatinine Ratio 11.5 Glucose Level 110 H Calcium Level 8.7 Total Bilirubin 0.6 Aspartate Amino Transf (AST/SGOT) 24 Alanine Aminotransferase (ALT/SGPT) 13 Alkaline Phosphatase 105 Troponin I High Sensitivity 7 Troponin I High Sens Percent Delta 40 Troponin I Hi Sens Absolute Change 2 Total Protein 7.6 Albumin 3.5 Globulin 4.1 Albumin/Globulin Ratio 0.9 L Chemistry Comments Ethyl Alcohol Level 148 H EKG/XRAY/CT/US/VASC/MRI EKG : Additional Comment EKG was obtained and interpreted by myself showing sinus rhythm of 78, normal NM interval, narrow QRS, no QT prolongation, normal axis, no STEMI. Medical Decision Making Findings Facility Status: ED Holds, [facility] process The plan was discussed with the patient, who demonstrates clear understanding of the plan and is in agreement with the plan unless otherwise noted in the chart. All questions have been answered, all concerns were addressed unless otherwise documented. I was available throughout their ED stay for frequent reassessment and questions. Differential Diagnoses (considered and possible or likely): [PVC, Pac, sinus tachycardic, less likely AFib, a flutter, unlikely malignant arrhythmia, unlikely ACS, alcohol intoxication, dehydration, electrolyte derangements. ??Differential Diagnoses (considered and unlikely, not requiring evaluation currently): [See above] MDM Data Please see HPI for the following: Independent Historians and external Records Review. Historian: [Patient] Independent Historians: ?[EMS, record review] Medication Management: [Reviewed medication list] Social History and determinants: [Reviewed] Please see the body of the note for the following: Any independent interpretations of ECG, imaging studies. All vitals signs/haemodynamics, ordered tests were independently reviewed and interpreted by myself. Nursing triage complaint and vitals reviewed, additional nursing notes were reviewed as available and I agree unless otherwise noted or documented in c ontradiction in the chart Vital Signs: Independently reviewed Labs: Independently interpreted Imaging: Independently interpreted Old Medical Records: Independently reviewed, see HPI for relevant summary and information Pulse Oximetry: [98%] interpreted as [normal on room air] by me [Medical Artist: [Regular Rate, Regular rhythm, no ectopy, NSR] reviewed and interpreted by me] Additionally notably showing: [Hemodynamically stable. Laboratory workup notable only for alcohol of 148, the lady is drunk. Imaging is unremarkable.] Tests considered but not ordered include: [Advanced imaging has been considerably does not appear to be necessary] Social Determinants of Health Impact: Patient was evaluated in [facility], [facility] [place] with limited access to healthcare due to below par ratio of patient to medical providers. [] Comorbid Conditions Impacting Present Evaluation and Care/Treatment: [Alcoholism, methamphetamine abuse] Management Discussions with other Healthcare Providers: [None] Treatment and Disposition Medication Management (Given or considered): [None]. Consideration for Hospitalization/Escalation/Deescalation of Care: Admission for observation has been considered, [however the patient is able to tolerate p.o., their symptoms are controlled, they are able to rely on oral medications, and their chief complaint/diagnosis can be managed on outpatient basis.] ?ED Course:?[No clinical deterioration] ?Shared decision making:?[Patient is hemodynamically stable for discharge home with follow with their primary care provider. [ ] Specific and cautious return precautions provided and discussed with full understanding. Any incidental findings were also discussed and follow up recommendations given. [] All questions answered. Patient/family were able to verbalize back return precautions. Patient/family agree to plan. Copies of imaging and laboratory s tudies were provided.] Code status:?FULL Please see the full Electronic Medical Record for full details of nursing documentation, medications list, other records of complete past medical history and conditions, vital signs, laboratory studies, and any radiologic study interpretations by radiologists. Portions of this note were completed using [employer] dictation software and as a result there may exist minor errors in spelling. I have reviewed elements of past family and social history and agree as included in note. Departure Impression: Primary Impression: Palpitations Additional Impressions: Alcohol intoxication Methamphetamine abuse Condition: Improved Referrals: NO PRIMARY CARE PROVIDER (PCP) Signature Scribe Signature: No scribe Attestation: This note accurately reflects clinical decisions, work performed by myself, DO TISH Sterling NICHOLAS M DO December 23, 2024 02:00
[2024-12-23 02:01] VITALS: BP 126/90; PULSE 90; RESP 15; O2SAT 100
[2024-12-23 02:14] LABS: BASOPHILS # (AUTO) 0.1 X10'3 (0-0.2); BASOPHILS % (AUTO) 1.2 % (0-1); EOSINOPHILS # (AUTO) 0.3 X10'3 (0-0.9); EOSINOPHILS % (AUTO) 3.7 % (0-6); HEMATOCRIT 39.1 % (35.0-45.0); HEMOGLOBIN 13.4 g/dl (12.0-16.0); LYMPHOCYTES # (AUTO) 3.3 X10'3 (1.1-4.8); LYMPHOCYTES % (AUTO) 43.7 % (21-51); MEAN CORPUSCULAR HEMOGLOBIN 31.2 PG (27.0-31.0); MEAN CORPUSCULAR HGB CONC 34.3 g/dL (33.0-36.5); MEAN PLATELET VOLUME 6.8 FL (7.4-10.4); MONOCYTES # (AUTO) 0.3 X10'3 (0-0.9); MONOCYTES % (AUTO) 4.4 % (2-12); NEUTROPHILS # (AUTO) 3.6 X10'3 (1.8-7.7); PLATELET COUNT 369 X10'3 (140-440); RED CELL DISTRIBUTION WIDTH 13.5 % (11.5-14.5); WHITE BLOOD COUNT 7.6 X10'3 (4.5-11.0)
[2024-12-23 02:30] LABS: ALANINE AMINOTRANSFERASE 13 U/L (12-78); ALBUMIN 3.5 G/DL (3.4-5.0); ALBUMIN/GLOBULIN RATIO 0.9 (1.1-1.5); ALKALINE PHOSPHATASE 105 IU/L (46-116); ANION GAP 11 (8-16); ASPARTATE AMINO TRANSFERASE 24 U/L (10-37); BILIRUBIN,TOTAL 0.6 MG/DL (0.1-1.0); BLOOD UREA NITROGEN 11 MG/DL (7-18); BUN/CREATININE RATIO 11.5 (10.0-20.0); CALCIUM 8.7 MG/DL (8.5-10.1); CHLORIDE 105 MMOL/L (99-107); CREATININE 0.96 MG/DL (0.40-0.90); ETHANOL 148 MG/DL (<10); GLUCOSE 110 MG/DL (70-104); POTASSIUM 3.8 MMOL/L (3.5-5.1); SODIUM 139 MMOL/L (135-145); TOTAL CARBON DIOXIDE 22.6 MMOL/L (24-32); TOTAL PROTEIN 7.6 G/DL (6.4-8.2); eCRCL 70 ML/MIN; eGFR 64 ML/MIN
--- NOTE | 2024-12-23 02:44 | RADIOLOGY REPORT ---
CHEST RADIOGRAPH Indication: Palpitations Technique: Single frontal view of the chest was obtained COMPARISON: DI CHEST,SINGLE VIEW on DOS: 05/09/24, DI CHEST,SINGLE VIEW on DOS: 01/05/24, CHEST,SINGLE VIEW on DOS: 11/29/19 FINDINGS: Lines and Tubes: None. Left lateral chest wall cardiac pacing device. Lungs: Clear Pleura: No effusion. No pneumothorax. Cardiomediastinal contours: Unremarkable Bones: Unremarkable IMPRESSION: 1. No acute disease.
[2024-12-23 03:32] VITALS: TEMP 98.1
--- NOTE | 2024-12-23 05:18 | ELECTROCARDIOGRAPH REPORT ---
[facility] Test Date: 2024-12-23 Test Time: 02:05:01 Pat Name: FOZIA GONZALEZ Department: EMERGENCY ROOM Room: Gender: F Cafeteria Team Leader: : 1985 Requested By: ZULMA WINSTON Order Number: [id number] Reading MD: Dr. Artur Odom Measurements Intervals [place] Rate: 78 P: 72 [place]: 146 QRS: 17 QRSD: 92 T: 56 QT: 383 QTc: 437 Interpretive Statements Sinus rhythm Low voltage, precordial leads Electronically Signed On 12-23-2024 17:20:[address] Artur Odom Please click the below link to view image of tracing.
[2024-12-23] MEDS ORDERED: FAMO20TA8 PO (09:25)
[2024-12-23] MEDS ORDERED: LOPE2TAB25 PO (09:25)
[2024-12-23] MEDS ORDERED: ONDA-243 PO (09:25)
== END 2024-12-23 03:37 | disposition home or self-care (01) ==
LOC: ER 01:34
DX: R00.2 Palpitations (principal); F10.129 Alcohol abuse with intoxication, unspecified; F15.10 Other stimulant abuse, uncomplicated; I10 Essential (primary) hypertension; F41.9 Anxiety disorder, unspecified; K21.9 Gastro-esophageal reflux disease without esophagitis; F17.200 Nicotine dependence, unspecified, uncomplicated; F11.90 Opioid use, unspecified, uncomplicated; Y90.9 Presence of alcohol in blood, level not specified; F12.90 Cannabis use, unspecified, uncomplicated; Z88.2 Allergy status to sulfonamides; Z79.899 Other long term (current) drug therapy
CPT/HCPCS: 36415; 71045; 80053; 80320; 84484; 85025; 93005; 99283; 99285

== ENCOUNTER 2024-12-23 09:04 | Emergency (ER) | payer MEDICAID ==
[~2024-12-23] VITALS: Ht 167.6 cm; Wt 65.0 kg
[2024-12-23 09:07] VITALS: BP 131/80; PULSE 80; O2SAT 98
--- NOTE | 2024-12-23 09:12 | Physician Documentation ---
History of Present Illness Chief Complaint: Abdominal Pain Stated Complaint: BODY PAIN Time Seen by MD: 09:12 Primary Medical Doctor: Michelle ALLEN This 39-year-old female who was brought to the emergency department per EMS when she presented at a local [facility] this morning. Evidently, she was demonstrating erratic behavior and reporting abdominal pain, dizziness, we akness, nausea, diarrhea. She reports several incontinent diarrhea stools. Of note, the patient has been seen here 4 times in the last 72 hours. She has had full lab workup including negative troponins, normal chemistries, normal CBC. She did however, have evidence of alcohol intoxication and was methamphetamine positive. On exam, the patient has generalized abdominal tenderness without rebound or guarding. Medication Reconciliation Allergies: Coded Allergies: Sulfa (Sulfonamide Antibiotics) (Verified Adverse Reaction, Mild, itchy around throat and ears, 12/23/24) Uncoded Allergies: BEES (Allergy, Intermediate, 09/24/09) MOSQUITOS (Allergy, Intermediate, 09/24/09) Scheduled Carvedilol (Carvedilol), 1 TAB PO BID, (Reported) Famotidine (Famotidine), 1 TAB PO Q12H Levothyroxine Sodium (Levothyroxine Sodium), 1 TAB PO DAILY, (Reported) Lisinopril (Lisinopril), 10 MG PO BID, (Reported) Loperamide Hcl (Loperamide), 1 TAB PO Q4H Magnesium Oxide (Magnesium), 1 TAB PO BID, (Reported) [Clonidine], 2 TAB PO PRN, (Reported) Scheduled PRN ONDANSETRON ODT 4mg tablet (Ondansetron Odt), 1 TAB PO Q6H PRN PRN for nausea/vomiting Past Medical History Past Medical History: Arrhythmia, Hypertension, GERD, Thyroid (unspecified), Chronic Back Pain, Anxiety Past Surgical History: no surgical history Alcohol Use: Alcoholic Drug Use: marijuana, methamphetamine, heroin Lives with: Family Lives In: Home Occupation: disabled Review of Systems ROS As stated above in the HPI, otherwise all systems are reviewed and negative. Physical Exam Physical Exam General: Alert, no apparent distress. Neck: Full range of motion. Respiratory: Lungs clear, no respiratory distress. Chest: No accessory muscle use. Cardiovascular: Regular rate and rhythm, no murmurs. Gastrointestinal: Soft, diffusely TTP without rebound or guarding. Bowels sounds present. Extremities: Normal range of motion, no deformity. Neurologic: Oriented x4. Psychiatric: Somewhat anxious appearing but cooperative on evaluation. Skin: Normal color, warm and dry. No edema, no ecchymosis. Medical Decision Making Additional Comments Patient has had full lab workup more than once within the last 72 hours. The only labs that were at all remarkable were her elevated blood alcohol and her positive urine methamphetamine. Abdominal exam showed mild diffuse tenderness without rebound or guarding. The patient's vital signs were all within normal limits. Patient plan of care discussed with ED MD Ontiveros and it was determined that she would benefit from intramuscular Zyprexa 1.25 mg IM times one along with oral ondansetron and loperamide. Following these interventions, the patient will be discharged. No emergent condition was identified. She was deemed appropriate for evaluation, treatment, and discharge. Departure Time of Disposition: 09:21 Disposition: 01 HOME / SELF CARE / HOMELESS Impression: Primary Impression: Methamphetamine abuse Additional Impressions: Alcohol abuse Acute gastroenteritis Condition: Stable Discharge Instructions: Diarrhea, Adult, Gastritis, Adult Additional Instructions: You were medicated for diarrhea and nausea in the ER. You have had multiple workups in the last 72 hrs that were unremarkable other than positive methamphetamine and elevated blood alcohol. Please work on reducing or ceasing your use of these substances-you'll have better health if you do so. You are being sent on medication for diarrhea, nausea, and GERD/acid reflux. Please followup with your primary care. Return if worse. Referrals: NO PRIMARY CARE PROVIDER (PCP) Prescriptions Famotidine (Famotidine) 20 Mg Tablet 1 TAB PO Q12H for gastritis/GERD symptoms for 10 Days, #20 TAB 0 Refills Prov: WALTER TOBIN NP 12/23/24 Loperamide Hcl (Loperamide) 2 Mg Tablet 1 TAB PO Q4H for loose stool for 10 Days, #10 TAB 0 Refills Prov: WALTER TOBIN NP 12/23/24 ONDANSETRON ODT 4mg tablet (ONDANSETRON ODT) 4 Mg Tab.rapdis 1 TAB PO Q6H PRN PRN for nausea/vomiting for 4 Days, #16 TAB 0 Refills Prov: WALTER TOBIN NP 12/23/24 Education Educated: Patient Educated regarding: diagnosis, treatment, prognosis, need for follow up Signature Scribe Signature: no scribe Attestation: The note accurately reflects work and decisions made by me.Walter Rice NP 12/23/24 09:20 WALTER TOBIN NP December 23, 2024 09:12
[2024-12-23] MEDS ORDERED: LOPE2TAB25 PO (09:25)
[2024-12-23] MEDS ORDERED: FAMO20TA8 PO (09:25)
[2024-12-23] MEDS ORDERED: ONDA-243 PO (09:25)
[2024-12-23] MEDS: OLANZapine **IM** 10 mg inj. IM ONE (09:36)
[2024-12-23] MEDS: ondansetron 4mg rapidly disintigrating tab PO ONE (09:36)
[2024-12-23] MEDS: loperamide 2mg capsule PO ONE (09:39)
[2024-12-23 09:44] VITALS: RESP 16
[2024-12-23 12:41] VITALS: TEMP 98.4
== END 2024-12-23 12:45 | disposition home or self-care (01) ==
LOC: ER 09:05
DX: K52.9 Noninfective gastroenteritis and colitis, unspecified (principal); F10.129 Alcohol abuse with intoxication, unspecified; F15.10 Other stimulant abuse, uncomplicated; K21.9 Gastro-esophageal reflux disease without esophagitis; F12.90 Cannabis use, unspecified, uncomplicated; F11.90 Opioid use, unspecified, uncomplicated; F41.9 Anxiety disorder, unspecified; I10 Essential (primary) hypertension; G89.29 Other chronic pain; Z88.2 Allergy status to sulfonamides; Z79.899 Other long term (current) drug therapy; Y90.9 Presence of alcohol in blood, level not specified
CPT/HCPCS: 96372; 99284; J3490